=== PATIENT | male | born 1985 | race Caucasian/White ===

== ENCOUNTER 2025-03-13 15:15 | Emergency (ER) | payer OTHER, SELFPAY ==
[2025-03-13 15:26] VITALS: BP 110/83
[2025-03-13 15:47] LABS: Hematocrit 45.7 % (39.0-52.0); Hemoglobin 16.3 g/dL (13.0-18.0); Mean Corp Hgb Conc. 35.7 g/dL (33.0-37.0); Mean Corpuscular Volume 85.7 fL (80.0-94.0); Nucleated Red Blood Cells % 0 % (-); Platelet Count 217 10^3/uL (130-400); Red Cell Dist. Width 12.4 % (11.5-14.5)
[2025-03-13 16:00] LABS: ALT (SGPT) 26 U/L (0-50); AST (SGOT) 23 U/L (17-59); Albumin 5.4 g/dl (3.5-5.0); Alkaline Phosphatase 79 U/L (38-126); Blood Urea Nitrogen 6 mg/dl (9-20); Calcium 10.0 mg/dl (8.4-10.2); Carbon Dioxide 22 mmol/L (22-30); Chloride 107 mmol/L (98-107); Glucose 93 mg/dl (70-99); Potassium 4.2 mmol/L (3.5-5.1); Sodium 140 mmol/L (135-145); Total Protein 8.2 g/dl (6.3-8.2); eGFR > 60.00
[2025-03-13 16:03] LABS: INR 1.03; PT 13.9 Sec (11.4-14.6)
[2025-03-13 16:11] LABS: Troponin I < 0.012 ng/ml
[2025-03-13 18:00] VITALS: BP 110/78
[2025-03-13 18:50] LABS: D-Dimer < 0.27 ug/mlFEU (0.00-0.50)
--- NOTE | 2025-03-13 18:55 | ED.GENMED ---
History of Present Illness
General
Chief Complaint: Chest Pain
Time Seen by Provider: 03/13/25 18:08
History of Present Illness
History of Present Illness:
40-year-old male with history of tobacco overuse presents to the emergency department for evaluation of intermittent chest pain and shortness of breath. The pain is sharp, left-sided, radiates through to the thoracic back. Not pleuritic and not
radiating in nature. He denies any obvious provoking or palliating factors. Pain is not present currently. He did have an outpatient chest x-ray last week for this that he states was reportedly normal. No fevers or chills. Denies any recent
surgeries or prolonged immobilization but did travel on a 5-hour car ride approximately 3 weeks ago.
Past History
Past History
ED Past Medical History: None
Social History
Tobacco: Smoker
Alcohol: Occasional
Personal:
Living: with family
Employment: Employed (Software)
Review of Systems
Review of Systems
Allergies reviewed?: Yes
All Other Systems: ROS reviewed and negative except as documented in HPI and ROS
Phy Exam
Physical Exam
Physical Exam:
GEN: Well appearing, NAD, WDWN
HEENT: Oral mucosa moist, no scleral icterus
Cardiac: Regular rate and rhythm, no murmurs
Lung: No respiratory distress, no tachypnea, lungs clear to auscultation
MSK: No gross deformity or injuries
Skin: Good color, no pallor or jaundice, no rashes
Neuro: AO x3, moves all extremities freely
Psych: Calm, cooperative
Scores
Heart Score for Chest Pain Patients
STEMI patient?: No
History: Slightly or Non-Suspicious
ECG: Normal
Age: </= 45 years
Risk Factors: 1 or 2 Risk Factors
Troponin: </= Normal Limit
Heart Score for Chest Pain Patients: 1
Heart Score Risk: 2.5% MACE over next 6 weeks
Course
Orders/Labs/Results
Orders:
Orders
03/13/25 15:20
EKG [Electrocardiogram (*1)] Urgent
Reason for Study: Chest Pain
EKG- Treatment ONCE
03/13/25 15:38
Complete Blood Count/With Diff Urgent
Comprehensive Metabolic Panel Urgent
D-Dimer Urgent
Comment: ADDON
Prothrombin Time Urgent
Troponin I Urgent
03/13/25 18:15
Add On- LAB Urgent
Tests Added?: d dimer
Abnormal Lab Results
03/13/25
15:38
Absolute Monos (auto) 0.7 H 10^3/uL
(0.1-0.6)
BUN 6 L mg/dl
(9-20)
Albumin 5.4 H g/dl
(3.5-5.0)
03/13/25 15:38
03/13/25 15:38
Vital Signs
Initial and Last Documented VS:
Initial Vital Signs
Temp Pulse Resp BP Pulse Ox
98.2 F 77 18 110/83 99
03/13/25 15:26 03/13/25 15:26 03/13/25 15:26 03/13/25 15:26 03/13/25 15:26
Last Documented Vital Signs
Temp Pulse Resp BP Pulse Ox
98.2 F 83 11 110/78 99
03/13/25 15:26 03/13/25 18:45 03/13/25 18:45 03/13/25 18:00 03/13/25 18:56
MDM/Problems Addressed
MDM/Problems Addressed:
EKG and labs are reassuring. D-dimer added due to recent prolonged travel and this was negative. No imaging was obtained as the patient states he had a recent outpatient image that was normal and declines repeat chest x-ray today. Will trial
NSAIDs for 1 week
Comment
Comment:
EKG dependently interpreted by me shows normal sinus rhythm with no ST changes concerning for ischemia
*Pulse Oximetry
SaO2: 99
Patient hypoxic: no
*Critical Care Note
Total Time (30-74mins, 75-104mins- exclusive of procedures): Not Applicable
ED Attending Note
-
Portions of this chart may have been created with voice recognition software.� Occasional wrong word or��sound alike� substitutions may have occurred due to the inherent limitations of voice recognition software.
Discharge Plan
Departure
Patient Disposition: Home (Routine Discharge)
Date of Disposition: 03/13/25
Time of Disposition: 18:59
Patient with high blood pressure during this ER visit?: No
Discharge Problem:
Atypical chest pain
Instructions: Chest Pain That Is Not Caused by the Heart (DC)
Prescriptions:
New
celecoxib 200 mg capsule
200 mg PO BID Qty: 20 0RF
Interventions
Interventions:
*Risk Screen - Suicide Last Done: 03/13/25 15:26
*General Assessment Last Done: 03/13/25 15:26
*Neglect/Abuse Screening Last Done: 03/13/25 15:26
*ED- Fall Risk Assessment Last Done: 03/13/25 18:56
*ED COVID-19 Vaccine History Last Done: 03/13/25 18:56
*Nursing Disposition Last Done: 03/13/25 19:18
ED- Cardiac Assessment Last Done: 03/13/25 18:56
Discharge Date and Time
Discharge Date/Time: 03/13/25 19:20
Print Language: CITIZEN [place]
== END 2025-03-13 19:20 | disposition home or self-care (01) ==
LOC: EMR 15:15
PROVIDERS: EMERGENCY PHYSICIAN Emergency Medicine; FAMILY PHYSICIAN Family Medicine
DX: R07.89 Other chest pain (principal); F17.200 Nicotine dependence, unspecified, uncomplicated; I49.8 Other specified cardiac arrhythmias
CPT/HCPCS: 99283; 80053; 84484; 85025; 85379; 85610; 93005